=== PATIENT | female | born 2000 | race Caucasian/White ===

== ENCOUNTER 2021-12-16 22:20 | Emergency (ER) | payer MEDICAID ==
[~2021-12-16] VITALS: Ht 157.5 cm; Wt 64.0 kg
[2021-12-16 23:12] LABS: CLARITY URINE CLEAR (CLEAR); COLOR URINE YELLOW (YELLOW); KETONES URINE TRACE (NEGATIVE); LEUKOCYTE ESTERASE URINE NEGATIVE (NEGATIVE); NITRITE URINE NEGATIVE (NEGATIVE); OCCULT BLOOD URINE NEGATIVE (NEGATIVE); PROTEIN URINE NEGATIVE (NEGATIVE); SPECIFIC GRAVITY URINE 1.028 (1.005-1.030)
[2021-12-17 00:12] LABS: BASOPHILS % 0.7 % (0.0-2.0); EOSINOPHILS % 0.8 % (0.0-5.0); HEMATOCRIT. 36.6 % (36.0-48.0); HEMOGLOBIN. 12.6 g/dL (12.0-16.0); LYMPHOCYTES % 32.5 % (20.0-50.0); MEAN CORPUSCULAR HEMOGLOBIN 33.6 pg (28.0-32.0); MEAN CORPUSCULAR VOLUME 97.4 fL (81.0-99.0); MEAN PLATELET VOLUME 9.7 fl (7.4-10.4); MONOCYTES % 9.5 % (2.0-8.0); NEUTROPHILS % 56.5 % (40.0-76.0); PLATELET 214 x1000/uL (130-400); RED BLOOD CELL COUNT 3.75 mill/uL (4.2-5.4); RED CELL DISTRIBUTION WIDTH 13.4 % (11.6-14.6)
[2021-12-17 00:33] LABS: CHLORIDE 111 mEq/L (98-107)
[2021-12-17] MEDS ORDERED: TOPUD MT (02:27)
[2021-12-17 03:02] VITALS: BP 135/76
== END 2021-12-17 03:04 | disposition home or self-care (01) ==
LOC: ER 22:20
DX: R10.11 Right upper quadrant pain (principal)
CPT/HCPCS: 36415; 76705; 76830; 76856; 80053; 81003; 81025; 84702; 85025; 99284

== ENCOUNTER 2022-05-04 08:43 | Emergency (ER) | payer MEDICAID, OTHER ==
[~2022-05-04] VITALS: Ht 160 cm; Wt 68.0 kg
[~2022-05-04 08:43] MED LIST: TOPUD MT
[2022-05-04 08:49] VITALS: BP 107/74
[2022-05-04] MEDS ORDERED: ACETAMINOPHEN 325MG TABLET PO ONE (10:15)
[2022-05-04 10:24] LABS: CLARITY URINE CLEAR (CLEAR); COLOR URINE YELLOW (YELLOW); KETONES URINE TRACE (NEGATIVE); LEUKOCYTE ESTERASE URINE NEGATIVE (NEGATIVE); NITRITE URINE NEGATIVE (NEGATIVE); OCCULT BLOOD URINE NEGATIVE (NEGATIVE); PH URINE 6.5 (4.5-8.0); PROTEIN URINE NEGATIVE (NEGATIVE); SPECIFIC GRAVITY URINE 1.008 (1.005-1.030); UROBILINOGEN URINE 0.2 E.U./dL (0.2-1.0)
[2022-05-04 10:26] LABS: HEMATOCRIT. 41.2 % (36.0-48.0); HEMOGLOBIN. 13.8 g/dL (12.0-16.0); MEAN CORPUSCULAR VOLUME 95.2 fL (81.0-99.0); MEAN PLATELET VOLUME 10.2 fl (7.4-10.4); PLATELET 156 x1000/uL (130-400); RED BLOOD CELL COUNT 4.33 mill/uL (4.2-5.4)
[2022-05-04 10:38] LABS: CHLORIDE 99 mEq/L (98-107)
[2022-05-04 10:53] LABS: PLATELET ESTIMATE NORMAL
[2022-05-04] MEDS ORDERED: IBUP-2028 MT (11:47)
== END 2022-05-04 12:01 | disposition home or self-care (01) ==
LOC: ER 08:43
DX: R10.9 Unspecified abdominal pain (principal); J02.9 Acute pharyngitis, unspecified; N39.0 Urinary tract infection, site not specified
CPT/HCPCS: 36415; 80053; 81003; 85025; 87070; 87430; 99283

== ENCOUNTER 2022-08-13 09:09 | Emergency (ER) | payer MEDICAID, OTHER ==
[~2022-08-13] VITALS: Ht 157.5 cm; Wt 69.0 kg
[~2022-08-13 09:09] MED LIST changes: +IBUP-2028 MT
[2022-08-13 09:12] VITALS: BP 122/77
[2022-08-13] MEDS ORDERED: SILVER SULFADIAZINE 1% CREAM 25GM TOP ONE (09:45)
[2022-08-13] MEDS ORDERED: SILV20CR13 TP (10:29)
== END 2022-08-13 10:54 | disposition home or self-care (01) ==
LOC: ER 09:09
DX: T24.111A Burn of first degree of right thigh, initial encounter (principal); W40.1XXA Explosion of explosive gases, initial encounter; Y93.89 Activity, other specified; Y92.9 Unspecified place or not applicable
CPT/HCPCS: 81025; 99283

== ENCOUNTER 2022-09-20 12:21 | Emergency (ER) | payer MEDICAID, OTHER ==
[~2022-09-20] VITALS: Ht 162.6 cm; Wt 66.0 kg
[~2022-09-20 12:21] MED LIST changes: +SILV20CR13 TP
[2022-09-20 12:45] VITALS: BP 120/86
[2022-09-20] MEDS ORDERED: ONDANSETRON 4MG ODT PO STA (16:23)
[2022-09-20] MEDS ORDERED: ONDANSETRON 4MG ODT PO ONE (16:45)
[2022-09-20] MEDS ORDERED: FAMOTIDINE 20MG TABLET PO ONE (16:45)
[2022-09-20 17:42] LABS: BASOPHILS % 0.4 % (0.0-2.0); EOSINOPHILS % 0.3 % (0.0-5.0); HEMATOCRIT. 41.2 % (36.0-48.0); HEMOGLOBIN. 13.8 g/dL (12.0-16.0); LYMPHOCYTES % 27.1 % (20.0-50.0); MEAN CORPUSCULAR HEMOGLOBIN 32.1 pg (28.0-32.0); MEAN CORPUSCULAR VOLUME 95.7 fL (81.0-99.0); MEAN PLATELET VOLUME 9.4 fl (7.4-10.4); MONOCYTES % 8.3 % (2.0-8.0); NEUTROPHILS % 63.9 % (40.0-76.0); PLATELET 259 x1000/uL (130-400); RED CELL DISTRIBUTION WIDTH 13.4 % (11.6-14.6)
[2022-09-20 17:55] LABS: CHLORIDE 105 mEq/L (98-107)
== END 2022-09-20 18:58 | disposition left against medical advice (07) ==
LOC: ER 12:21
DX: R10.13 Epigastric pain (principal)
CPT/HCPCS: 36415; 80053; 81025; 85025; 99283; Q0162